=== PATIENT | female | born 1970 | race Caucasian/White ===

== ENCOUNTER 2020-01-19 10:44 | Emergency (ER) | payer OTHER ==
[2020-01-19] MEDS ORDERED: Acetaminophen/HYDROcodone 325-5 MG Tab PO ONE (11:26)
--- NOTE | 2020-01-19 11:51 | EDM.PDOC ---
ED HPI GENERAL MEDICAL PROBLEM - General Chief Complaint: Upper Extremity Injury/Pain Stated Complaint: LT WRIST INJURY Time Seen by Provider: 01/19/20 11:10 Source of Information: Reports: Patient History Limitations: Reports: No Limitations - History of Present Illness INITIAL COMMENTS - FREE TEXT/NARRATIVE: Patient is a 49-year-old female who presents to the ER with complaints of left wrist pain. She states last night she was intoxicated and went into the ditch to urinate. She fell landing back on her wrist. Since that time she has had pain and swelling. She has not taken anything for pain. She denies any previous injury to this wrist. Patient is from [place] and will be returning home on Tuesday. Right Wrist Pain Score (Numeric/FACES): 8 - Related Data Allergies Allergy/AdvReac Type Severity Reaction Status Date / Time Penicillins Allergy Cannot Verified 01/19/20 11:01 Remember Home Meds: Home Meds Acetaminophen/HYDROcodone [Lakeside 325-5 MG] 1 tab PO Q4H PRN #10 tablet 01/19/20 [Rx] Past Medical History HEENT History: Reports: Impaired Vision Cardiovascular History: Reports: None Respiratory History: Reports: Sleep Apnea Other Respiratory History: resolved with gastric bypass 2011 Genitourinary History: Reports: None MEDIA JOB TITLES History: Reports: , Spontaneous Musculoskeletal History: Reports: Osteoarthritis Other Musculoskeletal History: in fingertips having surgery on 01/28/2020 on left middle finger Neurological History: Reports: Migraines Other Neuro History: usually before menstral cycle Psychiatric History: Reports: Anxiety, Depression Endocrine/Metabolic History: Reports: Diabetes, Type II Other Endocrine/Metabolic History: controlled by diet normally Hematologic History: Reports: None Immunologic History: Reports: None Oncologic (Cancer) History: Reports: None Dermatologic History: Reports: None - Infectious Disease History Infectious Disease History: Reports: None - Past Surgical History Head Surgeries/Procedures: Reports: None HEENT Surgical History: Reports: Oral Surgery Respiratory Surgical History: Reports: None GI Surgical History: Reports: Bariatric Procedure Social & Family History - Family History Family Medical History: Noncontributory HEENT: Reports: None Cardiac: Reports: Heart Failure Respiratory: Reports: None GI: Reports: None : Reports: Dialysis OBGYN: Reports: None Musculoskeletal: Reports: None Neurological: Reports: None Psychiatric: Reports: None Endocrine/Metabolic: Reports: None Hematologic: Reports: None Immunologic: Reports: None Dermatologic: Reports: None Oncologic: Reports: None - Tobacco Use Smoking Status *Q: Current Some Day Smoker Years of Tobacco use: 20 Packs/Tins Daily: 0.2 - Caffeine Use Caffeine Use: Reports: Coffee - Recreational Drug Use Recreational Drug Use: No Review of Systems - Review of Systems Review Of Systems: Comprehensive ROS is negative, except as noted in HPI. ED EXAM, GENERAL - Physical Exam Exam: See Below Exam Limited By: No Limitations General Appearance: Alert, WD/WN, No Apparent Distress Respiratory/Chest: No Respiratory Distress, Lungs Clear, Normal Breath Sounds, No Accessory Muscle Use, Chest Non-Tender Cardiovascular: Normal Peripheral Pulses, Regular Rate, Rhythm, No Edema, No Gallop, No JVD, No Murmur, No Rub Extremities: Other (Mild swelling to the left wrist. No obvious deformity. Range of motion limited due to pain.) Neurological: Alert, Oriented, CN II-XII Intact, Normal Cognition, Normal Gait, Normal Reflexes, No Motor/Sensory Deficits Psychiatric: Normal Affect, Normal Mood Skin Exam: Warm, Dry, Intact, Normal Color, No Rash Course - Vital Signs Last Recorded V/S: Last Vital Signs Temp 97.8 F 01/19/20 11:02 Pulse 100 01/19/20 11:02 Resp 16 01/19/20 11:02 BP 132/61 01/19/20 11:02 Pulse Ox 97 01/19/20 11:02 - Orders/Labs/Meds Orders: Active Orders 24 hr Category Date Time Status Wrist Comp Min 3V Lt [CR] Stat Exams 01/19/20 11:12 Taken Meds: Medications Discontinued Medications Generic Name Dose Route Start Last Admin Trade Name Emery PRN Reason Stop Dose Admin Hydrocodone Bitart/Acetaminophen 1 tab 01/19/20 11:26 01/19/20 11:33 Lakeside 325-5 Mg PO 01/19/20 11:27 1 tab ONETIME ONE Administration - Re-Assessments/Exams Free Text/Narrative Re-Assessment/Exam: 01/19/20 11:48 X-ray of the left wrist shows a fracture of the distal radius. She has been placed in a custom Ortho-Glass splint. Since she is not local, she has been provided in a disc with the images for her to follow-up with an orthopedist when she gets home. We will provide her with a sling to use as needed. She will also receive a prescription for Lakeside for pain. Discharge instructions as documented. Departure - Departure Time of Disposition: 11:49 Disposition: Home, Self-Care 01 Condition: Good Clinical Impression: Fracture of radius Qualifiers: Encounter type: initial encounter Radius location: distal Fracture type: closed Fracture morphology: unspecified fracture morphology Laterality: left Qualified Code(s): S52.502A - Unspecified fracture of the lower end of left radius, initial encounter for closed fracture - Discharge Information *PRESCRIPTION DRUG MONITORING PROGRAM REVIEWED*: Yes *COPY OF PRESCRIPTION DRUG MONITORING REPORT IN PATIENT CHASE: No Prescriptions: Acetaminophen/HYDROcodone [Lakeside 325-5 MG] 1 tab PO Q4H PRN #10 tablet PRN Reason: Pain Instructions: Wrist Fracture Treated With Immobilization, [id number] Referrals: PCP,Not In Area [Primary Care Provider] - Forms: ED Department Discharge Additional Instructions: You were seen in the emergency department for pain and swelling to your left wrist after falling last night. X-rays were completed and show a fracture of your distal radius. You been placed in a splint. This should be kept on and be kept clean and dry until you are seen by an orthopedist. Recommend that you call to schedule an appointment with an orthopedist in approximately 1 week. You have been provided with a disc of your images to give to them. Recommend that you use [id number] Tylenol or ibuprofen as needed for pain. You may also ice and elevate the extremity when at rest. For pain not relieved by [id number] pain medications, you have been provided a prescription for Lakeside. You may use this 1 tab every 4 hours as needed. This is a narcotic medication, therefore you should not drive or work for 12 hours after taking the medication. Return to ER as needed. Sepsis Event Note (ED) - Evaluation Sepsis Screening Result: No Definite Risk - Focused Exam Vital Signs: Vital Signs Temp Pulse Resp BP Pulse Ox 01/19/20 11:02 97.8 F 100 16 132/61 97 - My Orders Last 24 Hours: My Active Orders 01/19/20 11:12 Wrist Comp Min 3V Lt [CR] Stat - Assessment/Plan Last 24 Hours: My Active Orders 01/19/20 11:12 Wrist Comp Min 3V Lt [CR] Stat
--- NOTE | 2020-01-20 11:36 | CR ---
Left wrist: 4 views of the left wrist were obtained. Comparison: No prior wrist study is available. Fractures are identified within the distal radius with mild impaction. Minimal posterior tilt of the distal radial articular margin is noted. No additional fracture or other bony abnormality is appreciated. Soft tissue swelling is noted. Impression: 1. Slightly impacted distal left radial fracture as described above. Soft tissue swelling. 2. Left wrist exam is otherwise unremarkable. Diagnostic code #3 This report was dictated in MDT
== END 2020-01-19 12:00 | disposition home or self-care (01) ==
LOC: JD.ED 10:44
DX: S52.502A Unspecified fracture of the lower end of left radius, initial encounter for closed fracture (principal); E11.9 Type 2 diabetes mellitus without complications; F17.210 Nicotine dependence, cigarettes, uncomplicated; Z88.0 Allergy status to penicillin; W19.XXXA Unspecified fall, initial encounter
CPT/HCPCS: 29125; 73110; 99283; A9270